=== PATIENT | male | born 1950 | race Caucasian/White ===

== ENCOUNTER 2017-12-23 14:13 | Inpatient (IN) | payer OTHER, MEDICARE ==
[~2017-12-23] VITALS: Ht 177.8 cm; Wt 139.1 kg
[~2017-12-23 14:13] MED LIST: ALLOPURINOL; ALLOPURINOL100 MG PO; ASPIRIN; BENICAR; CELEXA20 MG PO; CITALOPRAM HYDROBROM; COZAAR100 MG PO; GLUCOPHAGE; GLUCOPHAGE500 MG PO; K-DUR20 MEQ PO; LASIX; LASIX10 MG PO; LASIX40 MG PO; LIPITOR10 MG PO; LO-DOSE ASPIRIN81 M1 PO; NORCO 5/3251 TABLET PO; POTASSIUM CHLORIDE; ZYRTEC; ZYRTEC10 M3 PO
[2017-12-23 15:10] VITALS: BP 108/63
[2017-12-23] MEDS ORDERED: DILAUDID2 MG PO (15:18)
[2017-12-23 15:56] LABS: BASOPHIL (%) 0.2 % (0-1); EOSINOPHIL (%) 0.1 % (0-5); HEMATOCRIT 38.9 % (38.0-50.0); HEMOGLOBIN 13.4 G/DL (12.5-16.6); IMMATURE GRANULOCYTE (%) 0.5 % (0.0-0.7); LYMPHOCYTE (%) 8.1 % (15-42); LYMPHOCYTE COUNT 1.1 K/uL (1.0-2.8); MCH 29.8 PG (29.0-34.0); MCHC 34.4 G/DL (30.0-36.0); MCV 86.6 FL (86-99); MONOCYTE (%) 8.5 % (3-12); MONOCYTE COUNT 1.1 K/uL (0-0.8); NEUTROPHIL (%) 82.6 % (45-76); NEUTROPHIL COUNT 10.7 K/uL (1.8-6.4); PLATELET COUNT 186 K/uL (156-360); RBC DIS.WIDTH-CV 12.7 % (11.8-14.6); RBC DIS.WIDTH-SD 39.9 % (39-53); RED BLOOD COUNT 4.49 M/uL (4.00-5.50)
[2017-12-23 16:05] LABS: CHLORIDE 101 mEq/L (99-109); POTASSIUM 3.5 mEq/L (3.7-5.4); SODIUM 140 mEq/L (136-147)
[2017-12-23 16:07] LABS: GLUCOSE 110 mg/dL (70-99)
[2017-12-23 16:11] LABS: CREATININE 1.2 mg/dL (0.6-1.3); GFR ESTIMATE (CALCULATED) > 59 mL/min/ (58.99-99999)
[2017-12-23 16:12] LABS: UREA NITROGEN (BUN) 20 mg/dL (9-23)
[2017-12-23 16:52] LABS: ERTH.SED.RATE 69 MM/HR (0-20)
[2017-12-23 17:35] LABS: C-REACTIVE PROTEIN 144.9 MG/L (0-10)
[2017-12-23 20:19] VITALS: BP 124/62
[2017-12-24] VITALS (12 sets, daily range): BP systolic 70–146; BP diastolic 40–72
[2017-12-24 17:19] LABS: TROP-I INTERPRETATION NEGATIVE; TROPONIN-I < 0.01 ng/mL (0.0-0.30)
[2017-12-24 18:37] LABS: INTER. NORMALIZED RATIO 1.2
[2017-12-24 18:40] LABS: PTT 27.6 SEC (25-37)
[2017-12-25] VITALS (23 sets, daily range): BP systolic 106–162; BP diastolic 41–78
[2017-12-25 00:47] LABS: TROP-I INTERPRETATION NEGATIVE; TROPONIN-I 0.01 ng/mL (0.0-0.30)
[2017-12-25 07:20] LABS: TROP-I INTERPRETATION NEGATIVE; TROPONIN-I 0.02 ng/mL (0.0-0.30)
[2017-12-26] VITALS (16 sets, daily range): BP systolic 105–183; BP diastolic 52–92
[2017-12-26 04:13] LABS: CHLORIDE 107 mEq/L (99-109); POTASSIUM 3.9 mEq/L (3.7-5.4)
[2017-12-26 04:14] LABS: SODIUM 140 mEq/L (136-147)
[2017-12-26 04:18] LABS: TOTAL BILIRUBIN 0.6 mg/dL (0.0-1.0)
[2017-12-26 04:21] LABS: AST (GOT) 28 IU/L (2-34)
[2017-12-26 04:25] LABS: ALBUMIN 3.3 g/dL (3.2-4.8)
[2017-12-26 04:27] LABS: GLUCOSE 86 mg/dL (70-99)
[2017-12-26 04:28] LABS: TOTAL PROTEIN 5.7 g/dL (6.4-8.3)
[2017-12-26 04:31] LABS: ALKALINE PHOSPHATASE 58 IU/L (3-129); CREATININE 0.9 mg/dL (0.6-1.3); GFR ESTIMATE (CALCULATED) > 59 mL/min/ (58.99-99999)
[2017-12-26 04:32] LABS: UREA NITROGEN (BUN) 15 mg/dL (9-23)
[2017-12-26 04:34] LABS: ALT (GPT) 25 IU/L (3-49)
[2017-12-27] VITALS (8 sets, daily range): BP systolic 132–191; BP diastolic 61–77
[2017-12-27 04:41] LABS: HEMATOCRIT 35.5 % (38.0-50.0); HEMOGLOBIN 12.3 G/DL (12.5-16.6); MCH 29.9 PG (29.0-34.0); MCHC 34.6 G/DL (30.0-36.0); MCV 86.4 FL (86-99); PLATELET COUNT 173 K/uL (156-360); RBC DIS.WIDTH-CV 12.3 % (11.8-14.6); RBC DIS.WIDTH-SD 39.1 % (39-53); RED BLOOD COUNT 4.11 M/uL (4.00-5.50); WHITE BLOOD COUNT 7.3 K/uL (4.1-10.2)
[2017-12-27 06:59] LABS: CHLORIDE 106 MEQ/L (99-109); POTASSIUM 4.1 MEQ/L (3.7-5.4); SODIUM 139 MEQ/L (136-147)
[2017-12-27 07:05] LABS: CREATININE 0.9 MG/DL (0.6-1.3); GFR ESTIMATE (CALCULATED) > 59 mL/min/ (58.99-99999); GLUCOSE 95 mg/dL (70-99); UREA NITROGEN (BUN) 12 mg/dL (9-23)
[2017-12-28 00:30] VITALS: BP 155/76
[2017-12-28 04:24] VITALS: BP 163/84
[2017-12-28 08:32] VITALS: BP 140/77
[2017-12-28 11:50] VITALS: BP 154/70
[2017-12-28] MEDS ORDERED: BACTRIM,SEPT1 TABLE1 PO (13:17)
[2017-12-28 14:24] VITALS: BP 160/72
== END 2017-12-28 16:13 | disposition home or self-care (01) | DRG 908 ==
LOC: ENRESERV 14:13 → 3EAST 14:13 → ENRESERV 14:31 → 4WEST 14:59 → 3EAST 14:59 → ENRESERV 12-24 13:34 → 4WEST 12-24 14:38 → ENRESERV 12-27 17:37 → 4EAST 12-27 20:29
PROVIDERS: Internal Medicine Cardiovascular Disease; Neurological Surgery; Obstetrics & Gynecology; Thoracic Surgery (Cardiothoracic Vascular Surgery)
DX: G97.63 Postprocedural seroma of a nervous system organ or structure following a nervous system procedure (principal); I44.2 Atrioventricular block, complete; Y83.8 Other surgical procedures as the cause of abnormal reaction of the patient, or of later complication, without mention of misadventure at the time of the procedure; G83.4 Cauda equina syndrome; E66.01 Morbid (severe) obesity due to excess calories; Z68.41 Body mass index [BMI] 40.0-44.9, adult; E78.00 Pure hypercholesterolemia, unspecified; I10 Essential (primary) hypertension; E11.9 Type 2 diabetes mellitus without complications; I25.10 Atherosclerotic heart disease of native coronary artery without angina pectoris; E78.5 Hyperlipidemia, unspecified; G47.30 Sleep apnea, unspecified; Z95.5 Presence of coronary angioplasty implant and graft; R33.8 Other retention of urine
CPT/HCPCS: 71045; 80048; 80053; 82948; 84484; 85025; 85027; 85610; 85652; 85730; 86140; 87070; 87075; 87081; 87205; 87641; 93005; 94660; 94799; C1894; C1898; J0330; J0690; J1170; J1580; J1644; J2250; J2405; J2930; J3010; J3370; J3480; S0020